=== PATIENT | male | born 1985 | race Hispanic/Latino ===

== ENCOUNTER 2022-12-23 17:37 | Emergency (ER) | payer OTHER ==
[2022-12-23] MEDS ORDERED: HYDROcodone/Acetaminophen 10/325 mg Tablet ONE (18:00)
== END 2022-12-23 18:55 | disposition home or self-care (01) ==
LOC: NAV ERS 17:37
DX: S30.0XXA Contusion of lower back and pelvis, initial encounter (principal); F17.210 Nicotine dependence, cigarettes, uncomplicated; W18.39XA Other fall on same level, initial encounter
CPT/HCPCS: 72128; 72131